=== PATIENT | female | born 1970 | race American Indian/Alaskan Native ===

== ENCOUNTER 2017-04-09 15:47 | Inpatient (IN) | payer MEDICARE ==
[~2017-04-09] VITALS: Ht 157.5 cm; Wt 87.1 kg
[2017-04-09] MEDS ORDERED: CLINDAMYCIN PMX 600MG/50ML 50 ML IVPB ONE (16:30)
[2017-04-09] MEDS ORDERED: LIDOCAINE 1%, 20ML SQ ONE (16:30)
[2017-04-09] MEDS ORDERED: SODIUM CHLORIDE FLUSH 10ML SYR IVF ONE (16:30)
[2017-04-09] MEDS ORDERED: SODIUM CHLORIDE 0.9% 1,000ML IVBOLUS ONE (16:30)
[2017-04-09 17:17] LABS: ASPARTATE AMINO TRANSFERASE 25 U/L (15-37); BLOOD UREA NITROGEN 7 mg/dL (7-18)
[2017-04-09] MEDS ORDERED: PROPOFOL 10 MG/ML, 20ML ONE (17:23)
[2017-04-09] MEDS ORDERED: FENTANYL PF 100 MCG/2ML ONE (17:29)
[2017-04-09] MEDS ORDERED: PROPOFOL 10 MG/ML, 20ML IVPush ONE (17:30)
[2017-04-09] MEDS ORDERED: LIDOCAINE 1%, 20ML ONE (17:34)
[2017-04-09] MEDS ORDERED: CLINDAMYCIN PMX 600MG/50ML 50 ML ONE (18:37)
[2017-04-09] MEDS ORDERED: LEVE500T53 PO (18:48)
[2017-04-09] MEDS ORDERED: CARB200T PO (18:48)
[2017-04-09] MEDS ORDERED: CLON1TAB PO (18:48)
[2017-04-09] MEDS ORDERED: SERT100T PO (18:48)
[2017-04-09] MEDS ORDERED: TRAZ100T15 PO (18:48)
[2017-04-09] MEDS ORDERED: ONDANSETRON ODT 4 MG PO PRN (20:00)
[2017-04-09 20:35] VITALS: BP 110/67
[2017-04-09] MEDS: IBUPROFEN 200 MG TABLET PO PRN (20:37)
[2017-04-09] MEDS: HYDROmorphone 1 MG/ML, 1ML IVPush PRN (21:06)
[2017-04-09] MEDS: NICOTINE 14MG/24 HR PATCH.TD24 TD SCH (22:04)
[2017-04-09] MEDS: LEVETIRACETAM 500 MG TABLET PO SCH (22:05)
[2017-04-09] MEDS: TRAZODONE 100MG TABLET PO SCH (22:05)
[2017-04-09] MEDS: ENOXAPARIN 40 MG/0.4 ML SQ SCH (22:05)
[2017-04-09] MEDS ORDERED: CLINDAMYCIN 150 MG/ML, 6ML IM SCH (22:30)
[2017-04-10] MEDS: CLINDAMYCIN PMX 600MG/50ML 50 ML IV SCH ×4 (01:32→19:56)
[2017-04-10] MEDS: HYDROmorphone 1 MG/ML, 1ML IVPush PRN ×3 (01:32→20:45)
[2017-04-10 01:57] VITALS: BP 105/68
[2017-04-10 03:16] LABS: BLOOD UREA NITROGEN 7 mg/dL (7-18)
[2017-04-10] MEDS ORDERED: DIPHENHYDRAMINE 25 MG CAPSULE ONE (03:21)
[2017-04-10] MEDS ORDERED: DIPHENHYDRAMINE 25 MG CAPSULE PO ONE (03:30)
[2017-04-10 07:39] VITALS: BP 116/73
[2017-04-10] MEDS: CARBAMAZEPINE 100 MG TAB.CHEW PO SCH (08:40)
[2017-04-10] MEDS: LEVETIRACETAM 500 MG TABLET PO SCH ×2 (08:40→19:58)
[2017-04-10] MEDS: SERTRALINE 100MG TABLET PO SCH (08:40)
[2017-04-10] MEDS: ENOXAPARIN 40 MG/0.4 ML SQ SCH (08:40)
[2017-04-10 14:00] VITALS: BP 109/72
[2017-04-10] MEDS: IBUPROFEN 200 MG TABLET PO PRN (14:59)
[2017-04-10] MEDS: NICOTINE 14MG/24 HR PATCH.TD24 TD SCH (19:57)
[2017-04-10] MEDS: TRAZODONE 100MG TABLET PO SCH (19:58)
[2017-04-10 20:05] VITALS: BP 101/54
[2017-04-10 20:15] VITALS: BP_SYST 11; BP_SYST 111; BP_DIAS 58
[2017-04-10] MEDS ORDERED: DIPHENHYDRAMINE 25 MG CAPSULE PO PRN (22:00)
[2017-04-11] MEDS: CLINDAMYCIN PMX 600MG/50ML 50 ML IV SCH ×2 (01:15→07:45)
[2017-04-11] MEDS: HYDROmorphone 1 MG/ML, 1ML IVPush PRN ×2 (01:21→12:01)
[2017-04-11 01:23] VITALS: BP 107/56
[2017-04-11 07:20] VITALS: BP 109/70
[2017-04-11] MEDS ORDERED: CEFTRIAXONE 1,000 MG in SODIUM CHLORIDE 0.9% 50 ML IV SCH (07:30)
[2017-04-11] MEDS: IBUPROFEN 200 MG TABLET PO PRN (07:52)
[2017-04-11] MEDS: SERTRALINE 100MG TABLET PO SCH (09:24)
[2017-04-11] MEDS: LEVETIRACETAM 500 MG TABLET PO SCH (09:24)
[2017-04-11] MEDS: CARBAMAZEPINE 100 MG TAB.CHEW PO SCH (09:24)
[2017-04-11] MEDS ORDERED: HYDR-882 PO (14:28)
[2017-04-11] MEDS ORDERED: SULF1TAB24 PO (14:28)
[2017-04-11] MEDS ORDERED: OXYC-302 PO (16:01)
[2017-04-11 16:20] VITALS: BP 130/66
== END 2017-04-11 16:21 | disposition home or self-care (01) | DRG 746 ==
LOC: ED 18:23 → EDIP 18:30 → 3NW 19:55
PROVIDERS: ADMIT Hospitalist; ATTEND Hospitalist
PROC: 0T9B70Z Drainage of Bladder with Drainage Device, Via Natural or Artificial Opening (ICD-10-PCS; principal; 2017-04-09)
PROC: 0U9MXZZ Drainage of Vulva, External Approach (ICD-10-PCS; 2017-04-09)
DX: N76.2 Acute vulvitis (principal); N39.0 Urinary tract infection, site not specified; E66.9 Obesity, unspecified; F42.9 Obsessive-compulsive disorder, unspecified; F32.9 Major depressive disorder, single episode, unspecified; F17.210 Nicotine dependence, cigarettes, uncomplicated; L29.8 Other pruritus; N76.4 Abscess of vulva; B95.62 Methicillin resistant Staphylococcus aureus infection as the cause of diseases classified elsewhere; B96.1 Klebsiella pneumoniae [K. pneumoniae] as the cause of diseases classified elsewhere; F43.10 Post-traumatic stress disorder, unspecified; F60.3 Borderline personality disorder; Z83.3 Family history of diabetes mellitus; Z90.49 Acquired absence of other specified parts of digestive tract; Z88.0 Allergy status to penicillin; Z88.5 Allergy status to narcotic agent; Z88.6 Allergy status to analgesic agent; Z68.35 Body mass index [BMI] 35.0-35.9, adult; Z71.6 Tobacco abuse counseling
CPT/HCPCS: 36415; 80048; 80053; 81001; 85025; 87040; 87070; 87077; 87086; 87186; 87205; 87491; 87591; 96361; 96365; J0696; J1170; J1650; J7030; Q0163

== ENCOUNTER → 2017-04-12 | Outpatient (CLI) | payer MEDICARE ==
[~2017-04-12] MED LIST: CARB200T PO; CLON1TAB PO; HYDR-882 PO; LEVE500T53 PO; OXYC-302 PO; SERT100T PO; SULF1TAB24 PO; TRAZ100T15 PO
== END | disposition home or self-care (01) ==
LOC: WOUND 08:45
PROVIDERS: ATTEND Internal Medicine
DX: T81.31XA Disruption of external operation (surgical) wound, not elsewhere classified, initial encounter (principal); N76.2 Acute vulvitis; J44.9 Chronic obstructive pulmonary disease, unspecified; F41.9 Anxiety disorder, unspecified; F32.9 Major depressive disorder, single episode, unspecified; E66.9 Obesity, unspecified; Z68.35 Body mass index [BMI] 35.0-35.9, adult; F10.10 Alcohol abuse, uncomplicated; F17.210 Nicotine dependence, cigarettes, uncomplicated; Y83.8 Other surgical procedures as the cause of abnormal reaction of the patient, or of later complication, without mention of misadventure at the time of the procedure
CPT/HCPCS: G0463; WOU0463